=== PATIENT | female | born 1995 | race American Indian/Alaskan Native ===

== ENCOUNTER 2019-02-15 07:17 | Emergency (ER) | payer OTHER ==
[2019-02-15 08:05] LABS: Bacteria,Urine 1+ /HPF (Negative); Bilirubin,Urine NEG (Negative); Blood,Urine NEG (Negative); Color,Urine Yellow (Yellow); Mucus,Urine 1+ /HPF; Protein,Urine <15 mg/dL mg/dL (Negative); Urobilinogen,Urine < 2.0 mg/dL (<2.0)
[2019-02-15 08:06] LABS: HCG Qualitative,Urine Negative (Negative)
[2019-02-15 08:06] LABS: Basophils % (Auto) 0.3 % (0.0-1.8); Eosinophils % (Auto) 0.2 % (0.0-4.3); Hematocrit 31.6 % (30.3-42.9); Hemoglobin 10.7 gm/dl (10.1-14.3); Lymphocytes # (Auto) 1.3 K/mm3 (1.2-5.4); Lymphocytes % (Auto) 18.2 % (13.4-35.0); Mean Corpuscular HGB Conc 34 % (30-34); Mean Corpuscular Volume 87 fl (79-97); Monocytes # (Auto) 0.5 K/mm3 (0.0-0.8); Monocytes % (Auto) 7.2 % (0.0-7.3); Platelet Count 393 K/mm3 (140-440); Red Blood Count 3.64 M/mm3 (3.65-5.03); Red Cell Distribution Width 14.2 % (13.2-15.2)
[2019-02-15 08:21] LABS: Alanine Aminotransferase 6 units/L (7-56); Albumin 3.8 g/dL (3.9-5); BUN/Creatinine Ratio 9; Blood Urea Nitrogen 6 mg/dL (7-17); Calcium 9.3 mg/dL (8.4-10.2); Hemolysis Index 6
--- NOTE | 2019-02-15 08:27 | Emergency Department Report ---
ED Female HPI - General Chief complaint: Urogenital-Female Stated complaint: LOW ABDOMINAL PAIN Time Seen by Provider: 02/15/19 07:40 Source: patient Mode of arrival: Ambulatory Limitations: No Limitations - History of Present Illness Initial comments: This is a 23-year-old female nontoxic, well nourished in appearance, no acute signs of distress presents to the ED with c/o of dysuria, vaginal discharge, pelvic pain, and urinary frequency x1 weeks. Patient stated is concerned about STD. Patient denies any vaginal bleeding, ulcers or lesions. Patient denies any back pain. Patient denies any abdominal pain. Patient denies any nausea, vomiting, chest pain, shortness of breathe, fever, chills, headache, back pain, numbness, tingling, stiff neck. Patient denies any urinary symptoms. Patient denies any allergies or PMH. MD Complaint: vaginal discharge, dysuria, pelvic pain -: week(s) (1) Severity: mild Severity scale (0 -10): 3 Quality: cramping, aching Consistency: constant Improves with: none Worsens with: urination Are you Now?: No Associated Symptoms: vaginal discharge, dysuria, other (pelvic pain). denies: vaginal bleeding, abdominal pain, nausea/vomiting, fever/chills, headaches, loss of appetite, hematuria, rash, seizure, shortness of breath, syncope, weakness - Related Data Sexually active: Yes Previous Rx's Medication Instructions Recorded Last Taken Type Fluconazole [Diflucan TAB] 150 mg PO ONCE #1 tablet 02/15/19 Unknown Rx Sulfamethoxazole/Trimethoprim 1 each PO BID #14 tablet 02/15/19 Unknown Rx [Bactrim DS TAB] metroNIDAZOLE [Flagyl] 500 mg PO Q12HR #14 tab 02/15/19 Unknown Rx Allergies Allergy/AdvReac Type Severity Reaction Status Date / Time No Known Allergies Allergy Unverified 02/15/19 07:27 ED Review of Systems ROS: Stated complaint: LOW ABDOMINAL PAIN Other details as noted in HPI Constitutional: denies: chills, fever Eyes: denies: eye pain, eye discharge, vision change ENT: denies: ear pain, throat pain Respiratory: denies: cough, shortness of breath, wheezing Cardiovascular: denies: chest pain, palpitations Endocrine: no symptoms reported Gastrointestinal: denies: abdominal pain, nausea, diarrhea Genitourinary: dysuria, frequency, discharge. denies: urgency Musculoskeletal: denies: back pain, joint swelling, arthralgia Skin: denies: rash, lesions Neurological: denies: headache, weakness, paresthesias Psychiatric: denies: anxiety, depression Hematological/Lymphatic: denies: easy bleeding, easy bruising ED Past Medical Hx - Past Medical History Previous Medical History?: No - Surgical History Past Surgical History?: No - Social History Smoking Status: Current Every Day Smoker Substance Use Type: Alcohol, Marijuana - Medications Home Medications: Home Medications Medication Instructions Recorded Confirmed Last Taken Type Fluconazole [Diflucan TAB] 150 mg PO ONCE #1 tablet 02/15/19 Unknown Rx Sulfamethoxazole/Trimethoprim 1 each PO BID #14 tablet 02/15/19 Unknown Rx [Bactrim DS TAB] metroNIDAZOLE [Flagyl] 500 mg PO Q12HR #14 tab 02/15/19 Unknown Rx ED Physical Exam - General Limitations: No Limitations General appearance: alert, in no apparent distress - Head Head exam: Present: atraumatic, normocephalic - Neck Neck exam: Present: normal inspection, full ROM. Absent: tenderness, meningismus, lymphadenopathy - GI/Abdominal GI/Abdominal exam: Present: soft, normal bowel sounds. Absent: distended, tenderness, guarding, rebound, rigid, diminished bowel sounds - External exam: Present: normal external exam, other (occupational therapy professor Patricia RN present during exam). Absent: erythema, swelling, lesions, lacerations, ecchymosis, bleeding Speculum exam: Present: normal speculum exam, cervical discharge, other (occupational therapy professor Patricia RN present during exam). Absent: erythema, vaginal discharge, vaginal bleeding, foreign body Bi-manual exam: Present: normal bi-manual exam, other (occupational therapy professor Patricia RN p resent during exam). Absent: cervical motion tendernes, adnexal tenderness, adnexal mass, uterine enlargement, uterine tenderness - Extremities Exam Extremities exam: Present: normal inspection, full ROM - Back Exam Back exam: Present: normal inspection, full ROM. Absent: tenderness, CVA tenderness (R), CVA tenderness (L), muscle spasm, paraspinal tenderness, vertebral tenderness, rash noted - Neurological Exam Neurological exam: Present: alert, oriented X3, normal gait - Psychiatric Psychiatric exam: Present: normal affect, normal mood - Skin Skin exam: Present: warm, dry, intact, normal color. Absent: rash ED Course Vital Signs 02/15/19 07:21 Temperature 99.9 F H Pulse Rate 105 H Respiratory 18 Rate Blood Pressure 152/95 O2 Sat by Pulse 98 Oximetry - Reevaluation(s) Reevaluation #1: 02/15/19 08:29 Patient is speaking in full sentences with no signs of distress noted. ED Medical Decision Making - Lab Data Result diagrams: 02/15/19 07:54 02/15/19 07:54 - Medical Decision Making This is a 23-year-old female that presents with UTI, BV, and yeast vaginal. Patient is stable and was examined by me. UA obtained. Patient does not have any CVA tenderness. No signs or symptoms of pyelonephritis. Gonorrhea chlamydia swab pending. Patient was instructed to return in 3-5 days for GC results. Patient wanted empirical treatment so patient received 250 mg Rocephin and 1 g of azithromycin by mouth. Patient is discharged with Bactrim. Us pelvic and transvaginal obtained and dictated by the radiologist. Patient is notified of the US report with no questions noted by the patient. Patient was instructed to Follow-up with a primary care doctor in 3-5 days or if symptoms worsen and continue return to emergency room as soon as possible. At time of discharge, the patient does not seem toxic or ill in appearance. No acute signs of distress noted. Patient agrees to discharge treatment plan of care. No further questions noted by the patient. Critical care attestation.: If time is entered above; I have spent that time in minutes in the direct care of this critically ill patient, excluding procedure time. ED Disposition Clinical Impression: Bacterial vaginosis, Vaginal yeast infection, Possible exposure to STD UTI (urinary tract infection) Qualifiers: Urinary tract infection type: acute cystitis Hematuria presence: without he maturia Qualified Code(s): N30.00 - Acute cystitis without hematuria Disposition: - TO HOME OR SELFCARE Is pt being admited?: No Does the pt Need Aspirin: No Condition: Stable Instructions: Bacterial Vaginosis (ED), Urinary Tract Infection in Women (ED), Vulvovaginal Candidiasis (ED), Metronidazole (By mouth), Safe Sex (ED) Additional Instructions: Follow-up with a primary care doctor in 3-5 days or if symptoms worsen and continue return to emergency room as soon as possible. Return in 3-5 days for gonorrhea and chlamydia results. Prescriptions: Sulfamethoxazole/Trimethoprim [Bactrim DS TAB] 1 each PO BID #14 tablet Fluconazole [Diflucan TAB] 150 mg PO ONCE #1 tablet metroNIDAZOLE [Flagyl] 500 mg PO Q12HR #14 tab Referrals: JAZMÍN COOKATKINSON MD SANJIV [Primary Care Provider] - 3-5 Days PRIMARY CAREMD [Referring] - 3-5 Days JOSE BOYD MD [Staff Physician] - 3-5 Days [facility] [Outside] - 3-5 Days Forms: Work/School Release Form(ED)
[2019-02-15] MEDS ORDERED: ROCEPHIN IM ONE (08:28)
[2019-02-15] MEDS ORDERED: IBUPROFEN PO ONE (08:28)
[2019-02-15] MEDS ORDERED: XYLOCAINE 1% MPF 5 mL INFILTRATI ONE (08:28)
[2019-02-15] MEDS ORDERED: ZITHROMAX PO ONE (08:28)
[2019-02-15 09:50] VITALS: BP 146/90
--- NOTE | 2019-02-15 11:41 | Ultrasound Report ---
Pelvic ultrasound INDICATION: Right lower quadrant pain Transabdominal and endovaginal studies were performed. On transabdominal study the uterus measures 5.7 cm in length and 2.5 cm in AP diameter with transvers e diameter on endovaginal study of 4.4 cm. Endometrial thickness was measured at 4 mm. No evidence of intrauterine is seen. Small anterior body leiomyoma is noted measuring 17 mm. Right ovary measures 2.8 cm in length and shows a heterogenous appearance with probable small complex cystic areas measuring up to 2 cm. Flow is noted. Left ovary measures 3.6 cm in length and shows a 19 mm complex cystic area. In the left adnexal area there is a serpiginous tubular fluid-filled structure with thick high. This was not indicated by the technologist to show peristalsis and may be a hydrosalpinx. No free fluid is seen. IMPRESSION: 1. No obvious acute abnormality is seen 2. Small uterine leiomyoma 3. Bilateral small probable complex ovarian cysts. Recommend follow-up. 4. Possible left hydrosalpinx versus bowel without reported peristalsis. Follow-up may be useful to s colton if this is a persistent appearance. Signer Name: Shyam Lowyr MD Signed: 02/15/2019 11:36 AM Workstation Name: [id number]
== END 2019-02-15 11:50 | disposition home or self-care (01) ==
LOC: ED 07:17
DX: N76.0 Acute vaginitis (principal); B96.89 Other specified bacterial agents as the cause of diseases classified elsewhere; B37.3 Candidiasis of vulva and vagina; N39.0 Urinary tract infection, site not specified; F17.200 Nicotine dependence, unspecified, uncomplicated; F12.10 Cannabis abuse, uncomplicated
CPT/HCPCS: 36415; 76830; 76856; 80053; 81001; 81025; 85025; 87086; 87210; 87591; 96372; 99284; J0696